=== PATIENT | female | born 1990 | race Caucasian/White ===

== ENCOUNTER 2020-11-09 14:19 | Emergency (ER) | payer MEDICAID ==
[~2020-11-09] VITALS: Ht 162.6 cm; Wt 53.0 kg
[2020-11-09 14:26] VITALS: BP 101/64
[2020-11-09] MEDS ORDERED: SODIUM CHLORIDE 0.9% 1,000 ML IV ONE (15:00)
[2020-11-09 15:16] LABS: BASOPHILS % 0.3 % (0.0-2.0); EOSINOPHILS % 0.3 % (0.0-5.0); HEMATOCRIT. 31.5 % (36.0-48.0); HEMOGLOBIN. 10.7 g/dL (12.0-16.0); LYMPHOCYTES % 9.3 % (20.0-50.0); MEAN CORPUSCULAR HEMOGLOBIN 29.8 pg (28.0-32.0); MEAN CORPUSCULAR VOLUME 87.2 fL (81.0-99.0); MEAN PLATELET VOLUME 9.8 fl (7.4-10.4); NEUTROPHILS % 85.1 % (40.0-76.0); PLATELET 265 x1000/uL (130-400); RED BLOOD CELL COUNT 3.61 mill/uL (4.2-5.4)
[2020-11-09 15:18] LABS: CLARITY URINE CLOUDY (CLEAR); COLOR URINE YELLOW (YELLOW); KETONES URINE NEGATIVE (NEGATIVE); LEUKOCYTE ESTERASE URINE 3+ (NEGATIVE); NITRITE URINE POSITIVE (NEGATIVE); OCCULT BLOOD URINE NEGATIVE (NEGATIVE); PROTEIN URINE NEGATIVE (NEGATIVE); SPECIFIC GRAVITY URINE 1.007 (1.005-1.030); UROBILINOGEN URINE 0.2 E.U./dL (0.2-1.0)
[2020-11-09 15:19] LABS: CHLORIDE 105 mEq/L (98-107)
[2020-11-09 15:22] LABS: PROTHROMBIN TIME 10.3 sec (9.6-11.0)
[2020-11-09 15:24] LABS: ETHANOL BLOOD < 10 mg/dL
[2020-11-09 15:37] LABS: *BARBITURATES SCREEN URINE NEGATIVE (NEGATIVE)
[2020-11-09 15:38] LABS: *AMPHETAMINES SCREEN URINE NEGATIVE (NEGATIVE); *BENZODIAZEPINES SCREEN URINE NEGATIVE (NEGATIVE); *COCAINE SCREEN URINE NEGATIVE (NEGATIVE); METHADONE URINE SCREEN NEGATIVE (NEGATIVE); OPIATES URINE SCREEN NEGATIVE (NEGATIVE)
[2020-11-09 15:39] LABS: CANNABINOID URINE SCREEN NEGATIVE (NEGATIVE); PHENCYCLIDINE URINE SCREEN NEGATIVE (NEGATIVE)
[2020-11-09] MEDS ORDERED: NITR-87 MT (17:20)
== END 2020-11-09 17:30 | disposition home or self-care (01) ==
LOC: ER 14:19
DX: O99.352 Diseases of the nervous system complicating pregnancy, second trimester (principal); R55 Syncope and collapse; O23.42 Unspecified infection of urinary tract in pregnancy, second trimester; O26.892 Other specified pregnancy related conditions, second trimester; R03.0 Elevated blood-pressure reading, without diagnosis of hypertension; Z3A.17 17 weeks gestation of pregnancy; O09.32 Supervision of pregnancy with insufficient antenatal care, second trimester; Z91.81 History of falling
CPT/HCPCS: 36415; 70551; 76805; 80053; 80305; 80320; 81003; 85025; 87077; 87186; 93005; 99285; G0480